=== PATIENT | female | born 1955 | race Hispanic/Latino ===

== ENCOUNTER 2018-04-28 17:51 | Emergency (ER) | payer OTHER, SELFPAY ==
[2018-04-28 18:46] LABS: Absolute Lymphocytes (CBC) 1.6 K/uL (0.7-4.9); Absolute Monocytes 0.4 K/uL (0.1-1.3); Absolute Neutrophil 3.9 K/uL (1.8-8.0); Basophils % 0.6 % (0-1.3); Eosinophils % 2.3 % (0-4.4); Hematocrit 39.7 % (36.0-45.0); Lymphocytes % 26.5 % (15.3-44.8); MCH 29.1 pg (27.0-35.0); MCV 86.3 fL (80-100); Monocytes % 6.8 % (3.3-12.3)
[2018-04-28 18:51] LABS: Protime INR 0.95
--- NOTE | 2018-04-28 18:55 | RAD REPORT ---
EXAM DESCRIPTION: CT - Head Brain Wo Cont - 04/28/2018 6:42 pm CLINICAL HISTORY: Occipital headache, neck pain COMPARISON: CT head December 2016 TECHNIQUE: Axial 5 mm thick images of the head were obtained without IV contrast. All CT scans are performed using dose optimization technique as appropriate and may include automated exposure control or mA/KV adjustment according to patient size. FINDINGS: No intracranial hemorrhage, mass, edema or shift of mid-line structures. No acute cortical based infarction. Mild atrophy changes are present. Focal encephalomalacia involves the left frontal and left parietal lobes head areas of prior CVA. Pattern is similar to the comparison. Mild underlyi ng chronic ischemic change. No abnormal extra-axial fluid collections. Ventricles are in proportion t o volume loss. Mastoid air cells and visualized portions of the paranasal sinuses are clear. No acute bony findings. IMPRESSION: No intracranial hemorrhage and no acute cortical based infarction, mass or other acute i ntracranial finding. Atrophy, chronic ischemic change and old left frontal and left parietal CVA changes are similar to [facility] 2017.
[2018-04-28 19:00] LABS: Magnesium 2.4 mg/dL (1.8-2.4); Potassium 3.6 mmol/L (3.5-5.1)
--- NOTE | 2018-04-28 20:01 | EDPHYS ---
Physician Documentation [facility] Name: Loreta Mahajan Age: 63 yrs Sex: Female : 1955 Arrival Date: 04/28/2018 Time: 17:53 Bed 5 Private MD: ED Physician Mayur Weiner HPI: 04/28 18:28 This 63 yrs old Female presents to ER via Ambulatory with complaints of High rn Blood Pressure. 18:28 The patient has elevated blood pressure and discovered this at home. Onset: The rn symptoms/episode began/occurred today. Modifying factors:. Associated signs and symptoms: Pertinent positives: dizziness, headache, Pertinent negatives: chest pain, nausea, visual changes, vomiting, weakness. Severity of symptoms: At its worst the blood pressure was moderate, in the emergency department the blood pressure is improved. The patient has experienced similar episodes in the past. Reports headache to back of head, radiates down neck, intermittent, checked BP when it happeed and was high, took her medication today, states now headache improved, almost gone, and BP has as well. Reports had stroke in past with headache and slurred speech so wanted to be evaluated.No focal complaints or speech problems today. Just seen by pcp yesterday with normal eval.. Historical: - Allergies: 17:56 Codeine; sv 17:56 Lisinopril; sv - Home Meds: 17:56 atorvastatin oral oral [Active]; clopidogrel 75 mg Oral tab 1 tab once daily [Active]; sv losartan-hydrochlorothiazide 50-12.5 mg Oral tab 1 tab once daily [Active]; - PMHx: 17:56 Hypertension; stroke; sv 18:44 CVA; ae1 - PSHx: 17:56 Cholecystectomy; Bladder suspension; Hysterectomy; Tonsillectomy; sv - Immunization history:: Adult Immunizations up to date. - Social history:: Smoking status: Patient/guardian denies using tobacco. - Ebola Screening: : No symptoms or risks identified at this time. - Family history:: not pertinent. - Hospitalizations: : No recent hospitalization is reported. ROS: 18:28 Constitutional: Negative for fever, chills, and weight loss, Eyes: Negative for injury, rn pain, redness, and discharge, Neck: Negative for injury, and swelling, Cardiovascular: Negative for chest pain, palpitations, and edema, Respiratory: Negative for shortness of breath, cough, wheezing, and pleuritic chest pain, Abdomen/GI: Negative for abdominal pain, nausea, vomiting, diarrhea, and constipation, MS/Extremity: Negative for injury and deformity, Skin: Negative for injury, rash, and discoloration, Neuro: Negative for weakness, numbness, tingling, and seizure. Exam: 18:28 Constitutional: This is a well developed, well nourished patient who is awake, alert, rn and in no acute distress., appears anxious Head/Face: Normocephalic, atraumatic. Eyes: Pupils equal round and reactive to light, extra-ocular motions intact. Lids and lashes normal. Conjunctiva and sclera are non-icteric and not injected. Cornea within normal limits. Periorbital areas with no swelling, redness, or edema. Neck: Trachea midline, no thyromegaly or masses palpated, and no cervical lymphadenopathy. Supple, full range of motion without nuchal rigidity, or vertebral point tenderness. No Meningismus. Cardiovascular: Regular rate and rhythm with a normal S1 and S2. No gallops, murmurs, or rubs. Normal PMI, no JVD. No pulse deficits. Respiratory: Lungs have equal breath sounds bilaterally, clear to auscultation and percussion. No rales, rhonchi or wheezes noted. No increased work of breathing, no retractions or nasal flaring. Abdomen/GI: Soft, non-tender, with normal bowel sounds. No distension or tympany. No guarding or rebound. No evidence of tenderness throughout. MS/ Extremity: Pulses equal, no cyanosis. Neurovascular intact. Full, normal range of motion. Equal circumference. Neuro: Awake and alert, GCS 15, oriented to person, place, time, and situation. Cranial nerves II-XII grossly intact. Motor strength 5/5 in all extremities. Sensory grossly intact. Cerebellar exam normal. 20:02 Neck: no bruits, no jvd. spring Vital Signs: 17:56 BP 154 / 87 RA Sitting (auto/reg); Pulse 68; Resp 18; Temp 98.4; Pulse Ox 95% ; Weight sv 81.65 kg; Height 5 ft. 4 in. (162.56 cm); Pain 5/10; 19:00 BP 119 / 94; Pulse 63; Resp 15; Pulse Ox 97% ; bp 20:00 BP 148 / 84; Pulse 59; Resp 10; Pulse Ox 100% ; bp 17:56 Body Mass Index 30.90 (81.65 kg, 162.56 cm) sv MDM: 18:11 Patient medically screened. rn 20:02 Data reviewed: vital signs, nurses notes, lab test result(s), EKG, radiologic studies, [facility] CT scan, plain films. 04/28 18:28 Order name: Basic Metabolic Panel; Complete Time: 19:56 04/28 18:28 Order name: CBC with Diff; Complete Time: 19:56 04/28 18:28 Order name: Magnesium; Complete Time: 19:56 04/28 18:28 Order name: Protime (+inr); Complete Time: 19:56 04/28 18:28 Order name: Ptt, Activated; Complete Time: 19:56 04/28 18:28 Order name: CT Head Brain wo Cont; Complete Time: 18:56 04/28 18:28 Order name: Troponin (emerg Dept Use Only); Complete Time: 19:56 04/28 18:28 Order name: EKG; Complete Time: 18:29 04/28 18:28 Order name: Cardiac monitoring; Complete Time: 18:39 rn 04/28 18:28 Order name: EKG - Nurse/Tech; Complete Time: 18:39 04/28 18:54 Order name: Urine Dipstick--Ancillary (enter results) [facility] 04/28 19:57 Order name: Chest Single View XRAY [facility] 04/28 18:28 Order name: IV Saline Lock; Complete Time: 18:39 04/28 18:28 Order name: Labs collected and sent; Complete Time: 18:39 04/28 18:28 Order name: NPO; Complete Time: 18:56 04/28 18:28 Order name: O2 Per Protocol; Complete Time: 18:39 rn 04/28 18:28 Order name: O2 Sat Monitoring; Complete Time: 18:39 04/28 18:28 Order name: Urine Dipstick-Ancillary (obtain specimen); Complete Time: 18:54 rn Administered Medications: 20:06 Drug: Norvasc 5 mg Route: PO; bp 20:08 Follow up: Response: No adverse reaction bp Disposition: 04/28/18 20:01 Discharged to Home. Impression: Headache, Essential (primary) hypertension. - Condition is Stable. - Discharge Instructions: General Headache Without Cause, Hypertension, Hypertension, [id number], How to Take Your Blood Pressure, [id number], Aspirin and Your Heart, General Headache Without Cause, [id number], Managing Your Hypertension. - Prescriptions for Norvasc 2.5 mg Oral tablet - take 1 tablet by ORAL route once daily; 20 tablet. - Medication Reconciliation Form, Thank You Letter, Antibiotic Education, Prescription Opioid Use form. - Follow up: Private Physician; When: 2 - 3 days; Reason: Recheck today's complaints, Continuance of care, Re-evaluation by your physician. - Problem is new. - Symptoms have improved. Signatures: Dispatcher [employer] Yamila Tomlinson RN Mayur Richards MD MD cha Nieto, Roman, MD MD rn Elliott, Andrea, RN RN ae1 Rell, Mani, RN RN bp Corrections: (The following items were deleted from the chart) 18:32 18:28 Constitutional: Negative for fever, chills, and weight loss, Eyes: Negative for rn injury, pain, redness, and discharge, Neck: Negative for injury, pain, and swelling, Cardiovascular: Negative for chest pain, palpitations, and edema, Respiratory: Negative for shortness of breath, cough, wheezing, and pleuritic chest pain, Abdomen/GI: Negative for abdominal pain, nausea, vomiting, diarrhea, and constipation, MS/Extremity: Negative for injury and deformity, Skin: Negative for injury, rash, and discoloration, Neuro: Negative for weakness, numbness, tingling, and seizure, rn 20:53 20:01 04/28/2018 20:01 Discharged to Home. Impression: Headache; Essential (primary) bp hypertension. Condition is Stable. Forms are Medication Reconciliation Form, Thank You Letter, Antibiotic Education, Prescription Opioid Use. Follow up: Private Physician; When: 2 - 3 days; Reason: Recheck today's complaints, Continuance of care, Re-evaluation by your physician. Problem is new. Symptoms have improved. spring
--- NOTE | 2018-04-28 20:01 | ER ---
Nurse's Notes [facility] Name: Loreta Mahajan Age: 63 yrs Sex: Female : 1955 Arrival Date: 04/28/2018 Time: 17:53 Bed 5 Private MD: Diagnosis: Headache;Essential (primary) hypertension Presentation: 04/28 17:54 Presenting complaint: Patient states: HTN, occipital headache and neck pain started sv about 1500. Transition of care: patient was not received from another setting of care. Onset of symptoms was April 28, 2018 at 15:00. Care prior to arrival: None. 17:54 Method Of Arrival: Ambulatory sv 17:54 Acuity: VIOLA 3 sv 18:43 Risk Assessment: Do you want to hurt yourself or someone else? Patient reports no ae1 desire to harm self or others. Initial Sepsis Screen: Does the patient meet any 2 criteria? No. Patient's initial sepsis screen is negative. Does the patient have a suspected source of infection? No. Patient's initial sepsis screen is negative. Historical: - Allergies: 17:56 Codeine; sv 17:56 Lisinopril; sv - Home Meds: 17:56 atorvastatin oral oral [Active]; clopidogrel 75 mg Oral tab 1 tab once daily [Active]; sv losartan-hydrochlorothiazide 50-12.5 mg Oral tab 1 tab once daily [Active]; - PMHx: 17:56 Hypertension; stroke; sv 18:44 CVA; ae1 - PSHx: 17:56 Cholecystectomy; Bladder suspension; Hysterectomy; Tonsillectomy; sv - Immunization history:: Adult Immunizations up to date. - Social history:: Smoking status: Patient/guardian denies using tobacco. - Ebola Screening: : No symptoms or risks identified at this time. - Family history:: not pertinent. - Hospitalizations: : No recent hospitalization is reported. Screenin:43 Abuse screen: Denies threats or abuse. Nutritional screening: No deficits noted. ae1 Tuberculosis screening: No symptoms or risk factors identified. Fall Risk None identified. Assessment: 18:40 General: Appears in no apparent distress. uncomfortable, Behavior is cooperative, ae1 anxious. Pain: Complains of pain in occipital area and base of the skull. Neuro: Level of Consciousness is awake, alert, obeys commands, Oriented to person, place, time, situation. Cardiovascular: Heart tones S1 S2 present Patient's skin is warm and dry. Rhythm is sinus rhythm. Respiratory: Airway is patent Respiratory effort is even, unlabored, Respiratory pattern is regular, symmetrical, Breath sounds are clear bilaterally. GI: No signs and/or symptoms were reported involving the gastrointestinal system. Abdomen is round. : No signs and/or symptoms were reported regarding the genitourinary system. EENT: No signs and/or symptoms were reported regarding the EENT system. Derm: Skin is dry, Skin is normal, Skin temperature is warm. Musculoskeletal: No signs and/or symptoms reported regarding the musculoskeletal system. 19:00 Reassessment: RECD REPORT FROM BRANDON ALCARAZ. 63YO HF P/W HTN AND ANXIETY. ALL CURRENT ORDERS bp COMPLETED, VS STABLE ON MONITOR, NO ACUTE S/S AT THIS TIME. 20:00 Reassessment: D/C PENDING, NO ACUTE S/S AT THIS TIME. bp 20:52 Reassessment: PT D/C HOME AMBULATORY, DX WITH HEADACHE AND ESSENTIAL HYPERTENSION. bp Vital Signs: 17:56 BP 154 / 87 RA Sitting (auto/reg); Pulse 68; Resp 18; Temp 98.4; Pulse Ox 95% ; Weight sv 81.65 kg; Height 5 ft. 4 in. (162.56 cm); Pain 5/10; 19:00 BP 119 / 94; Pulse 63; Resp 15; Pulse Ox 97% ; bp 20:00 BP 148 / 84; Pulse 59; Resp 10; Pulse Ox 100% ; bp 17:56 Body Mass Index 30.90 (81.65 kg, 162.56 cm) sv ED Course: 17:53 Patient arrived in ED. mr 17:55 Triage completed. sv 17:56 Arm band placed on right wrist. sv 17:59 Caesar Weems, RN is Primary Nurse. ae1 18:11 David Lamb MD is Attending Physician. rn 18:[address] sw 18:38 EKG done, by ED staff. Inserted saline lock: 22 gauge in right antecubital area, using mb4 aseptic technique. Blood collected. 18:41 CT completed. Patient tolerated procedure well. Patient moved back from CT. nj 18:42 CT Head Brain wo Cont In Process Unspecified. EDMS 18:43 Bed in low position. Call light in reach. Side rails up X 1. playground monitor on. Pulse ae1 ox on. NIBP on. Warm blanket given. 18:53 Urine collected: clean catch specimen, clear. mb4 18:54 Urine Microscopic Only Sent. mb4 19:02 Primary Nurse role handed off by Caesar Weems, LISSA bp 19:02 Mani Zacarias, RN is Primary Nurse. bp 19:18 Attending Physician role handed off by David Lamb MD [facility] 19:18 Mayur Weiner MD is Attending Physician. [facility] 20:35 X-ray completed. Portable x-ray completed in exam room. Patient tolerated procedure ml well. 20:35 Chest Single View XRAY In Process Unspecified. EDMS 20:52 No provider procedures requiring assistance completed. IV discontinued, intact, bp bleeding controlled, No redness/swelling at site. Pressure dressing applied. Administered Medications: 20:06 Drug: Norvasc 5 mg Route: PO; bp 20:08 Follow up: Response: No adverse reaction bp Outcome: 20:01 Discharge ordered by MD. spring 20:52 Discharged to home ambulatory. bp 20:52 Condition: stable 20:52 Discharge instructions given to patient, Instructed on discharge instructions, follow up and referral plans. medication usage, Demonstrated understanding of instructions, follow-up care, medications, Prescriptions given X 1. 20:53 Patient left the ED. bp Signatures: Dispatcher [employer] EDKS Yamila Baird, Mayur Richards RN, MD MD cha Rivera, Maria Paulo, David Small MD MD rn Warren, Shannon Caesar Weems, LISSA RN ae1 Lio Hobson Brian, RN RN bp Disha Franklin mb4
[2018-04-28] MEDS ORDERED: AMLODIPINE 5 MG TAB ONE (20:07)
[2018-04-28 20:15] LABS: Urine Blood NEGATIVE (NEG); Urine Glucose NEGATIVE (NEG); Urine Protein NEGATIVE (NEG); Urine Specific Gravity 1.015 (1.005-1.030); Urine pH 6.5 (5.0-7.0)
--- NOTE | 2018-04-28 21:13 | RAD REPORT ---
EXAM DESCRIPTION: RAD - Chest Single View - 04/28/2018 8:37 pm CLINICAL HISTORY: Cough COMPARISON: December 2016 TECHNIQUE: AP portable chest image was obtained 2024 hours . FINDINGS: No focal lung parenchymal process. No failure or volume overload. Lung markings are simila r to comparison. Heart and vasculature are normal. No measurable pleural effusion and no pneumothorax . No gross bony abnormality seen. No acute aortic findings suspected. IMPRESSION: No acute cardiopulmonary process. No significant change from comparison.
[2018-04-28 21:40] VITALS: TEMP 98.4
[2018-04-28 21:43] VITALS: BP 148/84; O2SAT 100
--- NOTE | 2018-04-29 06:49 | EKG ---
Test Date: 2018-04-28 Test Time: 18:26:22 Human Capital Manager: ROSEMARY MEASUREMENT RESULTS: Intervals: Rate: 60 IN: 140 QRSD: 82 QT: 424 QTc: 424 [place]: P: 10 IN: 140 QRS: -26 T: 60 INTERPRETIVE STATEMENTS: Normal sinus rhythm Normal ECG Compared to ECG 07/14/2017 12:02:17 Sinus bradycardia no longer present T-wave abnormality no longer present Electronically Signed On 04-29-18 06:48:07 CDT by Jose Luis Blancas
== END 2018-04-28 20:53 | disposition home or self-care (01) ==
LOC: ER 17:51
DX: R51 Headache (principal); I10 Essential (primary) hypertension; Z88.5 Allergy status to narcotic agent; Z88.8 Allergy status to other drugs, medicaments and biological substances; Z86.73 Personal history of transient ischemic attack (TIA), and cerebral infarction without residual deficits
CPT/HCPCS: 36415; 70450; 71045; 80048; 81003; 83735; 84484; 85025; 85610; 85730; 93005; 99285